=== PATIENT | female | born 1960 | race Caucasian/White ===

== ENCOUNTER 2016-10-26 07:58 | Emergency (ER) | payer BC ==
[~2016-10-26] VITALS: Ht 160 cm; Wt 94.0 kg
[~2016-10-26 07:58] MED LIST: BENA20TA48 PO; BUPR-75 PO; COLE500G2 PO; DICL50TA11 PO; GABA100C PO; HYD25 PO; HYDR-3498 PO; MTF1000T PO; NAPR-688 PO; PENT400T2 PO; PRAV10TA43 PO; SITA50TA2 PO
[2016-10-26 08:01] VITALS: Ht 160 cm; Wt 94.0 kg
[2016-10-26] MEDS ORDERED: PRED20TA PO (08:40)
--- NOTE | 2016-10-26 08:49 | ERD ---
ER Documentation Chief Complaint Date/Time DATE: 10/26/16 TIME: 08:42 Chief Complaint rashes all over body started 3 days ago; itchiness 2 weeks ago HPI 55-year-old female complaining of itchiness on her skin for 2 weeks. She noticed rashes on her back and neck 3 days ago. She has seen a executive director a week ago, was given hydroxyzine and ranitidine, as well as steroid cream. Patient stated that they have not helped. She is being extremely itching. Denies fever or chills. Denies exposure to new foods or new cleaning products. Denies shortness of breath. Denies oral facial swelling. Patient has history of diabetes, hypertension, depression, anxiety. Patient is taking multiple medications. ROS All systems reviewed and are negative except as per history of present illness. Medications Home Meds Active Scripts Prednisone* (Prednisone*) 20 Mg Tab, 60 MG PO DAILY for 3 Days, TAB Prov:MICHELL ESTES DEGREASING SOLUTION RECLAIMER 10/26/16 Hydrocodone Bit-Acetaminophen* ([place]*) 5-325 Mg Tab, 1 TAB PO Q6 Y for PAIN, # 7 TAB Prov:ZOYA GAUTHIER I. DEGREASING SOLUTION RECLAIMER 09/29/15 Diclofenac Sodium* (Diclofenac Sodium*) 50 Mg Tablet.dr, 50 MG PO BID, #20 TAB Prov:ZOYA GAUTHIER I. DEGREASING SOLUTION RECLAIMER 09/29/15 Sitagliptin* (Januvia*) 50 Mg Tablet, 50 MG PO DAILY, #30 TAB Prov:SCOTT GARCIA PA-C 02/26/15 Hydrocodone Bit-Acetaminophen* ([place]*) 5-325 Mg Tab, 1 TAB PO Q6 Y for PAIN, # 14 TAB Prov:SCOTT GARCIA PA-C 02/26/15 Reported Medications Bupropion Hcl* (Wellbutrin XL*) 150 Mg Tab.sr.24h, 150 MG PO QAM, TAB.SA 02/17/14 Benazepril Hcl* (Benazepril Hcl*) 20 Mg Tablet, 20 MG PO DAILY, TAB 02/17/14 Hydrochlorothiazide* (Hydrochlorothiazide*) 25 Mg Tab, 25 MG PO DAILY, TAB 02/17/14 Naproxen* (Naproxen*) 500 Mg Tablet, 500 MG PO BID Y for PAIN, TAB 02/17/14 Sitagliptin* (Januvia*) 50 Mg Tablet, 50 MG PO DAILY, TAB 02/17/14 Gabapentin* (Neurontin*) 100 Mg Capsule, 300 MG PO HS, CAP 02/17/14 Colestipol Hcl (Colestipol Hcl) 500 Gm Granules, 1 GM PO TID 02/17/14 Pentoxifylline* (Pentoxifylline*) 400 Mg Tablet.sa, 400 MG PO TID, TAB 02/17/14 Metformin* (Glucophage*) 1,000 Mg Tablet, 1000 MG PO BID, TAB 02/17/14 Pravastatin Sodium* (Pravastatin Sodium*) 10 Mg Tablet, 10 MG PO HS 10/26/12 Allergies Allergies: Coded Allergies: No Known Allergy (Unverified , 10/26/16) PMhx/Soc History of Surgery: No Anesthesia Reaction: No Hx Neurological Disorder: No Hx Respiratory Disorders: No Hx Cardiac Disorders: Yes (HTN, INCREASED CHOLESTEROL) Hx Psychiatric Problems: No Hx Miscellaneous Medical Probl: Yes (DIABETES ) Hx Alcohol Use: No Hx Substance Use: No Hx Tobacco Use: No Smoking Status: Never smoker Physical Exam Vitals Vital Signs Date Time Temp Pulse Resp B/P Pulse Ox O2 Delivery O2 Flow Rate FiO2 10/26/16 08:01 98.1 68 19 162/72 96 Physical Exam General: Well-developed, well-nourished, conscious and coherent, in no distress Skin: Warm and dry, good texture and turgor. Discrete urticaria noted on patient's back and posterior neck. Head: Normocephalic without evidence of trauma Eyes: Sclera and conjunctivae normal; pupils equal, round, and reactive to light; extraocular movements are intact Ears: Canals are patent. Tympanic membranes are clear Nose/Face: Without rhinorrhea Mouth/throat: Mucous membranes are moist. Posterior pharynx clear without erythema or exudates Neck: Supple without meningismus or adenopathy. Carotids are equal. Trachea midline. No bruits or JVD Chest: Normal AP diameter. Good expansion without retractions. Nontender. Lungs are clear to auscultate bilaterally with good tidal volume Heart: Regular rate and rhythm. No murmur, rub, or gallops heard Abdomen: Soft and nontender without masses, guarding, or rebound. Bowel sounds are active. No hepatosplenomegaly Back: Without spinal or CVA tenderness Extremities: Full range of motion. Good strength bilaterally. No clubbing, cyanosis, or edema. Peripheral pulses are intact. Sensation intact Neuro: Alert and oriented 4, GCS 15. Cranial nerves grossly intact. Motor and sensory exams nonfocal. Moves all extremities. Speech clear. Gait normal Procedures/MDM Well-appearing 55-year-old female presented ED with pruritic skin lesions. Her lesions characteristics of allergic urticaria. It is unknown the cause of her allergy at this time. No sign of anaphylaxis. No sign of Saldivar-Chau syndrome or toxic epidermal necrolysis. Advised patient to continue taking hydroxyzine and ranitidine. I will add a short course of steroid for her. Patient appears well, stable for discharge and outpatient management. Medical decision making shared with patient and family. Education provided to patient and family. Patient and family expressed understanding of the plan. Medications on discharge: Prednisone. Follow-up: Primary care provider in 2-3 days or return to ED if worse. Departure Diagnosis: Primary Impression: Rash Condition: Good Patient Instructions: Allergic Reaction, Other (General) Referrals: DIVYA ROGERS MD (PCP) Additional Instructions: Llame al doctor MAANA y tona tiffany MORGAN PARA DENTRO DE 2-3 CUMMINGS.Dgale a la secretaria que nosotros le instruimos hacer esta morgan.Avise o llame si sauceda condicin se empeora antes de la morgan. Regresa aqui si peor o no mejor. Follow up with your executive director. MICHELL ESTES NP Oct 26, 2016 08:49
== END 2016-10-26 08:51 | disposition home or self-care (01) ==
LOC: FTE 07:58
DX: R21 Rash and other nonspecific skin eruption (principal); I10 Essential (primary) hypertension; E11.9 Type 2 diabetes mellitus without complications; Z79.84 Long term (current) use of oral hypoglycemic drugs
CPT/HCPCS: 99283

== ENCOUNTER 2017-06-12 09:20 | Day surgery (SDC) | END 2017-06-12 13:09 | disposition home or self-care (01) ==

== ENCOUNTER 2018-09-18 06:48 | Emergency (ER) | payer BC, OTHER ==
[~2018-09-18] VITALS: Ht 154.9 cm; Wt 95.0 kg
[~2018-09-18 06:48] MED LIST changes: +BENA20TA4 PO; -BENA20TA48 PO; -COLE500G2 PO; -DICL50TA11 PO; -GABA100C PO; -HYD25 PO; -HYDR-3498 PO; +HYDR25TA6 PO; +LORA10TA3 PO; -MTF1000T PO; -NAPR-688 PO; -PENT400T2 PO; +PENT400T9 PO; +RANI150C11 PO
[2018-09-18 06:53] VITALS: Ht 154.9 cm; Wt 95.0 kg
[2018-09-18] MEDS ORDERED: ASPIRIN 325 MG TAB PO STA (07:16)
[2018-09-18] MEDS ORDERED: SOD CHLORIDE 0.9% 1,000 ML IV STA (07:30)
[2018-09-18] MEDS ORDERED: ONDANSETRON 4 MG INJ IV STA (07:30)
[2018-09-18] MEDS ORDERED: KETOROLAC 30 MG INJ IV STA (07:30)
[2018-09-18] MEDS ORDERED: ACETAMINOPHEN 500 MG TAB PO STA (07:47)
--- NOTE | 2018-09-18 07:54 | ERD ---
ER Documentation Chief Complaint Chief Complaint pressure like chest pain radiates to left arm, nausea and headache sicne 1 HPI This is a 57-year-old [place]-speaking female with a past medical history of [id number]-napipypms diabetes mellitus, peptic ulcer disease, hypertension and high cholesterol. The patient presents to the emergency department stating that she awoke at 1 AM, roughly 7 hours prior to arrival planing of a nonproductive cough nausea and pleuritic chest pain. She indicates that the pain is a sharp shooting pain and contrary to the triage note is not a pressure-like sensation. She stated it radiated to her left arm. The pain was exacerbated when she moved her left arm. She is right-handed dominant. The pain does not radiate to the back. She also has a bandlike headache. She has a history of sinusitis in the past and states her symptoms appear similar as she has had nasal congestion and tactile fever with no shaking and chills for the past 24 hours. She states this is not the worst headache of her life. She had no recent sick contacts or hos pitalizations. She denies any shortness of breath at rest or exertion. She does not smoke tobacco. She did not take any antipyretics prior to arrival. ROS All systems reviewed and are negative except as per history of present illness. Medications Home Meds Active Scripts Sitagliptin* (Januvia*) 50 Mg Tablet, 50 MG PO DAILY, #30 TAB Prov:SCOTT GARCIA PA-C 02/26/15 Reported Medications Ranitidine Hcl (Ranitidine Hcl) 150 Mg Capsule, 150 MG PO HS, #30 CAP 06/12/17 Loratadine* (Loratadine*) 10 Mg Tablet, 10 MG PO DAILY, #30 TAB 06/12/17 Bupropion Hcl* (Wellbutrin XL*) 150 Mg Tab.sr.24h, 150 MG PO QAM, TAB.SA 02/17/14 Benazepril Hcl* (Benazepril Hcl*) 20 Mg Tablet, 20 MG PO DAILY, TAB 02/17/14 Hydrochlorothiazide* (Hydrochlorothiazide*) 25 Mg Tab, 25 MG PO DAILY, TAB 02/17/14 Pentoxifylline* (Pentoxifylline*) 400 Mg Tablet.sa, 400 MG PO TID, TAB 02/17/14 Pravastatin Sodium* (Pravastatin Sodium*) 10 Mg Tablet, 10 MG PO HS 10/26/12 Allergies Allergies: Coded Allergies: No Known Allergy (Unverified , 10/26/16) PMhx/Soc History of Surgery: Yes (hysterectomy) Anesthesia Reaction: No Hx Neurological Disorder: No Hx Respiratory Disorders: No Hx Cardiac Disorders: Yes (htn,) Hx Psychiatric Problems: Yes (depression) Hx Miscellaneous Medical Probl: No Hx Alcohol Use: No Hx Substance Use: No Hx Tobacco Use: No Physical Exam Vitals Vital Signs Date Temp Pulse Resp B/P (MAP) Pulse Ox O2 O2 Flow FiO2 Time Delivery Rate 09/18/18 Nasal 2 07:36 Cannula 09/18/18 100.4 103 25 142/72 97 06:53 (95) Physical Exam Constitutional:Well-developed. Well-nourished. HEENT:Normocephalic. Atraumatic.Pupils were equal round reactive to light. Moist mucous membranes.No tonsillar exudates. Bogginess to the nasal mucosa. Transparent rhinorrhea. Tenderness of the frontal maxillary sinuses. Neck: No nuchal rigidity. No lymphadenopathy. No posterior cervical spine tenderness or step-offs. Respiratory: Not using accessory muscles of respiration.Lungs were clear to auscultation bilaterally. No rhonchi. No rales. Mild wheezing bilaterally. Cardiovascular: Regular rate regular rhythm.No murmurs. No rubs were appreciated.S1, S2 normal. Distal pulses are palpable 2+ bilaterally. Reproducible left substernal chest wall tenderness with no crepitus no ecchymosis no flail chest. Tenderness exacerbated with horizontal movement of the left upper extremity. GI: Abdomen was soft. Nontender. Non Distended. No pulsatile abdominal masses or bruits. No rebound. No guarding. Bowel sounds were present and normal. Muscle skeletal: Full range of motion of both the upper and lower extremities bilaterally.Normal muscle tone.No assymetrical calf tenderness or swelling. Skin: No petechia, no purpura. No lesions on the palms or the soles of the feet. No maculopapular rash. NEURO: Patient was alert, awake, orientated x3.No facial droop. Gait observed and normal with no ataxia.Speech had regular rate and rhythm. No focal neurological deficits. Results 24 hrs Laboratory Tests Test 09/18/18 07:33 White Blood Count Pending Red Blood Count Pending Hemoglobin Pending Hematocrit Pending Mean Corpuscular Volume Pending Mean Corpuscular Hemoglobin Pending Mean Corpuscular Hemoglobin Concent Pending Red Cell Distribution Width Pending Platelet Count Pending Mean Platelet Volume Pending Current Medications Medications Dose Sig/Dianna Start Time Status Last (Trade) Ordered Route PRN Stop Time Admin Dose Reason Admin Aspirin 325 mg ONCE STAT 09/18/18 DC 09/18/18 (Aspirin) PO 07:16 09/18/18 07:27 07:17 Sodium 1,000 ml @ Q1H STAT 09/18/18 Chloride 1,000 mls/hr IV 07:30 09/18/18 08:29 Ondansetron 4 mg ONCE STAT 09/18/18 DC HCl (Zofran IV 07:30 09/18/18 Inj) 07:32 Ketorolac 30 mg ONCE STAT 09/18/18 DC Tromethamine IV 07:30 09/18/18 (Toradol) 07:32 Procedures/MDM The patient presented to the emergency department complaining of chest pain. My clinical evaluation and workup was to distinguish minor causes of chest pain from acute life threatening cardiopulmonary causes such as myocardial infarction, pulmonary embolism, aortic dissection, esophageal rupture, cardiac tamponade, and the patient was given aspirin upon arrival The patient was placed on a cardiac exercise specialist, continuous pulse oximetry and IV access established by nursing staff. The patient had a low-grade fever signs of clinical dehydration was given a liter bolus of normal saline. Patient was given acetaminophen. The patient was also given IV Toradol. Chest radiograph showed no infiltrates no pneumothorax or pleural effusions. 12 Lead EKG tracing ordered and reviewed by myself showed: Sinus tachycardia of 102 bpm and no arrhythmia. ME interval normal. QRS duration normal. No ST segment elevation No ST segment depression. No changes consistent with acute ischemia. Patient no severe electrolyte abnormalities. There is no elevation of the patient's cardiac enzymes. The patients chest pain was reproduced by palpation and horizontal flexion of the arms. It was my clinical impression that the pain was a result of inflammation of the skin and subcutaneous structures of the chest wall versus myocardial ischemia. I felt the patient had low-risk chest pain and could therefore be safely discharged with close follow-up. I will discharge the patient home with antibiotics and anti-inflammatories for suspected acute sinusitis and acute occult chondritis. Steroids will not be given as the patient has a history of diabetes and this could result in hyperglycemia. The patient was discharged home in fair condition. They were instructed to return to the emergency department at any time if there was any worsening of their condition. The patient stated they would follow up with their PCP in the next 24-48 hours to initiate a suitable medication regimen under the care of their PCP as well as to allow their PCP to monitor any drug reactions. The patient was discharged home with prescriptions after they gave informed consent to the new medication. They were also fully informed by myself on the adverse effects and adverse drug interactions in order to provide adequate safeguards to prevent possible adverse reactions to medications. Departure Diagnosis: Primary Impression: Costochondritis, acute Additional Impression: Sinusitis Sinusitis location: frontal Chronicity: acute Recurrence: non-recurrent Qualified Codes: J01.10 - Acute frontal sinusitis, unspecified Condition: CHELSEY Downs MD September 18, 2018 07:54
[2018-09-18] MEDS ORDERED: AMOX500C2 PO (08:01)
[2018-09-18] MEDS ORDERED: IBUP800T48 PO (08:01)
[2018-09-18] MEDS ORDERED: ACET500C5 PO (08:01)
[2018-09-18] MEDS ORDERED: IPRATROPIUM (NEB) 0.5 MG/2.5 ML AMP NEB STA (08:22)
[2018-09-18] MEDS ORDERED: ALBUTEROL 0.083% (NEB) 2.5 MG/3 ML AMP NEB STA (08:22)
[2018-09-18 09:32] VITALS: BP 123/63; PULSE 74; RESP 20
== END 2018-09-18 09:34 | disposition home or self-care (01) ==
LOC: FTE 06:48
DX: M94.0 Chondrocostal junction syndrome [Tietze] (principal); J01.10 Acute frontal sinusitis, unspecified; E11.9 Type 2 diabetes mellitus without complications; I10 Essential (primary) hypertension; R05 Cough; Z79.84 Long term (current) use of oral hypoglycemic drugs
CPT/HCPCS: 36415; 71045; 80053; 82550; 82553; 83880; 84484; 85025; 85610; 85730; 93005; 94664; 96374; 96375; J1885; J2405; J7030; Z7502; Z7610

== ENCOUNTER 2018-10-11 07:48 | Emergency (ER) | payer OTHER ==
[~2018-10-11] VITALS: Ht 160 cm; Wt 95.0 kg
[~2018-10-11 07:48] MED LIST changes: +ACET500C5 PO; +AMOX500C2 PO; +IBUP800T48 PO
[2018-10-11 07:51] VITALS: Ht 160 cm; Wt 95.0 kg
[2018-10-11] MEDS ORDERED: morphine 4 MG/ML VIAL IV STA (08:06)
[2018-10-11] MEDS ORDERED: SOD CHLORIDE 0.9% 500 ML IV STA (08:06)
[2018-10-11] MEDS ORDERED: ONDANSETRON 4 MG INJ IV STA ×2 (08:06→09:53)
[2018-10-11] MEDS ORDERED: HYDROmorphONE 1 MG/ML SYG IV STA (09:53)
--- NOTE | 2018-10-11 10:22 | ERD ---
ER Documentation Chief Complaint Chief Complaint pain@ the back of the neck;headace, body pain,rashes on the feet ; hx of DM HPI This is a 57-year-old female that presents to the emergency department with multiple complaints. She indicates that she is been having a bandlike headache for several weeks. She been seen and evaluated for this headache in another facility. She had been diagnosed with migraines and had been given Motrin. Indicates that this improves the headache but does not completely resolve it. She does complain of pain to the back of her neck. However she said no fevers no shaking no chills. She indicates that this pain is been also present for several months. She does undergo heavy lifting. Her main concern today is that she has a history of diabetes mellitus and developed a rash on the bilateral l ower extremities that began 1 week ago. She was seen by her primary care physician and placed on antifungal medication. She indicates that the rash is pruritic, tender and she feels has worsened. It is localized to the bilateral lower extremities. She has no shortness of breath. She denies any chest pressure. She has no changes in vision. She states this is not the worst headache of her life. ROS All systems reviewed and are negative except as per history of present illness. Medications Home Meds Active Scripts Acetaminophen* (Tylophen*) 500 Mg Capsule, 2 CAP PO Q8H PRN for PAIN AND OR ELEVATED TEMP, #20 CAP Prov:CHELSEY SANTOS MD 09/18/18 Ibuprofen* (Motrin*) 800 Mg Tab, 800 MG PO Q6H PRN for PAIN AND OR ELEVATED TEMP, #30 TAB Prov:CHELSEY SANTOS MD 09/18/18 Amoxicillin* (Amoxicillin*) 500 Mg Cap, 500 MG PO BID for 7 Days, CAP Prov:CHELSEY SANTOS MD 09/18/18 Sitagliptin* (Januvia*) 50 Mg Tablet, 50 MG PO DAILY, #30 TAB Prov:SCOTT GARCIA PA-C 02/26/15 Reported Medications Ranitidine Hcl (Ranitidine Hcl) 150 Mg Capsule, 150 MG PO HS, #30 CAP 06/12/17 Loratadine* (Loratadine*) 10 Mg Tablet, 10 MG PO DAILY, #30 TAB 06/12/17 Bupropion Hcl* (Wellbutrin XL*) 150 Mg Tab.sr.24h, 150 MG PO QAM, TAB.SA 02/17/14 Benazepril Hcl* (Benazepril Hcl*) 20 Mg Tablet, 20 MG PO DAILY, TAB 02/17/14 Hydrochlorothiazide* (Hydrochlorothiazide*) 25 Mg Tab, 25 MG PO DAILY, TAB 02/17/14 Pentoxifylline* (Pentoxifylline*) 400 Mg Tablet.sa, 400 MG PO TID, TAB 02/17/14 Pravastatin Sodium* (Pravastatin Sodium*) 10 Mg Tablet, 10 MG PO HS 10/26/12 Allergies Allergies: Coded Allergies: No Known Allergy (Unverified , 10/26/16) PMhx/Soc History of Surgery: Yes (hysterectomy) Anesthesia Reaction: No Hx Neurological Disorder: No Hx Respiratory Disorders: No Hx Cardiac Disorders: Yes (htn, HIGH CHOLESTEROL, ) Hx Psychiatric Problems: Yes (depression) Hx Miscellaneous Medical Probl: Yes (DIABETES) Hx Alcohol Use: No Hx Substance Use: No Hx Tobacco Use: No Smoking Status: Never smoker Physical Exam Vitals Vital Signs Date Temp Pulse Resp B/P (MAP) Pulse Ox O2 O2 Flow FiO2 Time Delivery Rate 10/11/18 98.9 71 18 140/69 96 07:51 (92) Physical Exam Constitutional:Well-developed. Well-nourished. HEENT:Normocephalic. Atraumatic.Pupils were equal round reactive to light. Moist mucous membranes.No tonsillar exudates. Funduscopy exam showed sharp optic disks and venous pulsations are present. Neck: No nuchal rigidity. No lymphadenopathy. No posterior cervical spine tenderness or step-offs. Respiratory: Not using accessory muscles of respiration.Lungs were clear to auscultation bilaterally. No rhonchi. No rales. No wheezing. Cardiovascular: Regular rate regular rhythm.No murmurs. No rubs were appreciated.S1, S2 normal. Distal pulses are palpable 2+ bilaterally. GI: Abdomen was soft. Nontender. Non Distended. No pulsatile abdominal masses or bruits. No rebound. No guarding. Bowel sounds were present and normal. Muscle skeletal: Full range of motion of both the upper and lower extremities bilaterally.Normal muscle tone.bilateral calf tenderness with no asymmetrical swelling. Skin: No petechia, no purpura. No lesions on the palms or the soles of the feet. No maculopapular rash. Erythremia warmth and tenderness over the anterior aspect of the distal third of the bilateral lower extremities with multiple areas of excoriations. Pain not out of proportion to physical exam. No subcutaneous emphysema. NEURO: Patient was alert, awake, orientated x3.No facial droop. Gait observed and normal with no ataxia.Speech had regular rate and rhythm. No focal n eurological deficits. Result Diagram: 10/11/18 0845 10/11/18 0845 Results 24 hrs Laboratory Tests Test 10/11/18 08:45 White Blood Count 7.3 10^3/ul Red Blood Count 5.00 10^6/ul Hemoglobin 12.0 g/dl Hematocrit 38.3 % Mean Corpuscular Volume 76.6 fl Mean Corpuscular Hemoglobin 24.0 pg Mean Corpuscular Hemoglobin Concent 31.3 g/dl Red Cell Distribution Width 13.7 % Platelet Count 401 10^3/UL Mean Platelet Volume 8.9 fl Immature Granulocytes % 0.300 % Neutrophils % 63.1 % Lymphocytes % 27.7 % Monocytes % 4.6 % Eosinophils % 4.2 % Basophils % 0.1 % Nucleated Red Blood Cells % 0.0 /100WBC Immature Granulocytes # 0.020 10^3/ul Neutrophils # 4.6 10^3/ul Lymphocytes # 2.0 10^3/ul Monocytes # 0.3 10^3/ul Eosinophils # 0.3 10^3/ul Basophils # 0.0 10^3/ul Nucleated Red Blood Cells # 0.0 10^3/ul Prothrombin Time 13.6 Sec Prothrombin Time Ratio 1.1 INR International Normalized Ratio 1.03 Activated Partial Thromboplast Time 27.5 Sec Urine Color YELLOW Urine Clarity SLIGHTLY CLOUDY Urine pH 7.0 Urine Specific [place] 1.018 Urine Ketones NEGATIVE mg/dL Urine Nitrite NEGATIVE mg/dL Urine Bilirubin NEGATIVE mg/dL Urine Urobilinogen NEGATIVE mg/dL Urine Leukocyte Esterase TRACE Marley/ul Urine Microscopic RBC 10 /HPF Urine Microscopic WBC 37 /HPF Urine Squamous Epithelial Cells MODERATE /HPF Urine Bacteria FEW /HPF Urine Mucus FEW /HPF Urine Hemoglobin 1+ mg/dL Urine Glucose NEGATIVE mg/dL Urine Total Protein 1+ mg/dl Sodium Level 140 mmol/L Potassium Level 4.3 mmol/L Chloride Level 106 mmol/L Carbon Dioxide Level 26 mmol/L Anion Gap 8 Blood Urea Nitrogen 9 mg/dl Creatinine 0.48 mg/dl Est Glomerular Filtrat Rate mL/min > 60 mL/min Glucose Level 182 mg/dl Calcium Level 9.3 mg/dl Total Bilirubin 1.1 mg/dl Direct Bilirubin 0.00 mg/dl Indirect Bilirubin 1.1 mg/dl Aspartate Amino Transf (AST/SGOT) 36 IU/L Alanine Aminotransferase (ALT/SGPT) 40 IU/L Alkaline Phosphatase 89 IU/L Troponin I < 0.012 ng/ml Total Protein 8.2 g/dl Albumin 4.2 g/dl Globulin 4.00 g/dl Albumin/Globulin Ratio 1.05 Amylase Level 69 U/L Lipase 56 U/L Current Medications Medications Dose Sig/Dianna Start Time Status Last (Trade) Ordered Route PRN Stop Time Admin Dose Reason Admin Sodium 500 ml @ Q1H STAT 10/11/18 DC 10/11/18 Chloride 500 mls/hr IV 08:06 08:40 10/11/18 09:05 Morphine 4 mg ONCE STAT 10/11/18 DC 10/11/18 Sulfate IV 08:06 08:40 (morphine) 10/11/18 08:07 Ondansetron 4 mg ONCE STAT 10/11/18 DC 10/11/18 HCl (Zofran IV 08:06 08:40 Inj) 10/11/18 08:07 1 mg ONCE STAT 10/11/18 DC Hydromorphone IV 09:53 HCl 10/11/18 09:55 (Dilaudid) Ondansetron 4 mg ONCE STAT 10/11/18 DC HCl (Zofran IV 09:53 Inj) 10/11/18 09:55 Procedures/MDM The patient presented to the emergency department with a subacute headache that began within weeks to months of onset. My differential diagnosis included but was not limited to chronic subdural hematoma, brain tumor, brain abscess, chronic sinusitis, temporal arteritis, temporomandibular joint syndrome, ps uedotumor cerebri, glaucoma, migrane, HTN, intracranial hemorrhage or cerebral ischemia. This was not the patients worse headache of their life. The patient had a complete neurologic and fundoscopic exam performed by myself that was normal with no focal neurological deficits or retinal hemorrhage. The patient stated this headache was not severe or distinct from other headaches and the history with the physical exam findings did not likely suggest SAH. Therefore, I did not feel it was clinically necessary to perform a lumbar puncture and CSF analysis. I obtained a 12-lead EKG tracing patient was also complaining of dizziness. The patient started to have multiple complaints now also being dizziness. She had no focal neurological deficits. 12 Lead EKG tracing ordered and reviewed by myself showed: Normal sinus rhythm of 60 bpm and no arrhythmia. FL interval normal. QRS duration normal. No ST segment elevation No ST segment depression. No changes consistent with acute ischemia. I obtained a CT scan the patient's head which showed no intracerebral hemorrhage mass-effect or midline shift. Initially did not obtain radiographic imaging but the patient still continued to complain of a bandlike headache despite receiving analgesic medication which include morphine and Zofran. She also received Dilaudid. The patient was afebrile with no nuchal rigidity my clinical suspicion was low for bacterial meningitis. The patient's urinalysis did indicate pyuria with leukocytes and nitrates. The patient did states she had been experiencing frequency and urgency but denies dysuria. She was given 1 g of ceftriaxone intravenously after urine culture was obtained. The patient also presented to the emergency department with a spreading erythematous superficial infection of the skin and subcutaneous tissues. My differential diagnosis included but was not limited to necrotizing fasciitis, lymphangitis, thrombophlebitis, deep vein thrombosis, allergic reaction, neoplasm, gout or abscess. Predisposing factors of the progressive spread of erythema, warmth, pain and tenderness was considered such as lymphedema, tinea pedis, open wounds, prior trauma or surgery, pre-existing skin lesion (furuncle), retained foreign body, injection drug use or vascular or immune compromise. The patient was placed on antibiotics to cover Staphylococcus aureus, including resistant strains such as community-acquired methicillin- resistant S. aureus Observation Note: Time: 4 hours Family Hx: No Hypertension Evaluation: Multiple exams showed improving symptoms and no evidence of sepsis. There is no leukocytosis. I did feel the patient would benefit from outpatient antibiotics to treat both urinary tract infection and suspected cellulitis of the bilateral lower extremities. She was given a prescription of Bactrim and Keflex. The patient was discharged home in fair condition. They w ere instructed to return to the emergency department at any time if there was any worsening of their condition. The patient stated they would follow up with their PCP in the next 24-48 hours to initiate a suitable medication regimen under the care of their PCP as well as to allow their PCP to monitor any drug reactions. The patient was discharged home with prescriptions after they gave informed consent to the new medication. They were also fully informed by myself on the adverse effects and adverse drug interactions in order to provide adequate safeguards to prevent possible adverse reactions to medications. Departure Diagnosis: Primary Impression: Headache Headache type: tension-type Headache chronicity pattern: episodic headache Intractability: not intractable Qualified Codes: G44.219 - Episodic tension-type headache, not intractable Additional Impressions: UTI (urinary tract infection) Urinary tract infection type: acute cystitis Hematuria presence: without h ematuria Qualified Codes: N30.00 - Acute cystitis without hematuria Cellulitis Site of cellulitis: extremity Site of cellulitis of extremity: lower extremity Laterality: unspecified laterality Qualified Codes: L03.119 - Cellulitis of unspecified part of limb Condition: CHELSEY Downs MD October 11, 2018 10:22
[2018-10-11] MEDS ORDERED: CEFTRIAXONE 1 GM/50 ML (PMX) 50 ML IVPB ONE (10:30)
[2018-10-11] MEDS ORDERED: BEN25 PO (10:43)
[2018-10-11] MEDS ORDERED: SIMV20TA PO (10:44)
[2018-10-11] MEDS ORDERED: BENA10TA4 PO (10:44)
[2018-10-11] MEDS ORDERED: OMEP40CA6 PO (10:44)
[2018-10-11] MEDS ORDERED: DULA0.75 SQ (10:45)
[2018-10-11] MEDS ORDERED: SITA100T11 PO (10:45)
[2018-10-11] MEDS ORDERED: IBUP-1544 PO (10:46)
[2018-10-11] MEDS ORDERED: GLIP10TA14 PO (10:46)
[2018-10-11] MEDS ORDERED: MONT10TA24 PO (10:47)
[2018-10-11] MEDS ORDERED: GABA400C14 PO (10:47)
[2018-10-11] MEDS ORDERED: FURO20TA3 PO (10:48)
[2018-10-11] MEDS ORDERED: BUPR300T4 PO (10:48)
[2018-10-11] MEDS ORDERED: CEPH-443 PO (13:34)
[2018-10-11] MEDS ORDERED: SULF1TAB31 PO (13:34)
[2018-10-11 15:51] VITALS: BP 138/72; PULSE 71; RESP 18
== END 2018-10-11 15:54 | disposition home or self-care (01) ==
LOC: E/R 07:48
DX: G44.219 Episodic tension-type headache, not intractable (principal); N30.00 Acute cystitis without hematuria; L03.115 Cellulitis of right lower limb; L03.116 Cellulitis of left lower limb; E11.9 Type 2 diabetes mellitus without complications; R42 Dizziness and giddiness
CPT/HCPCS: 70450; 80053; 81001; 82150; 83690; 84484; 85025; 85610; 85730; 87086; 93005; 93970; J0696; J1170; J2270; J2405; J7040; Z7610; 36415; 96361; 96374; 96375; 96376

== ENCOUNTER 2019-03-07 12:29 | Inpatient (IN) | payer OTHER ==
[~2019-03-07] VITALS: Ht 157.5 cm; Wt 83.7 kg
[~2019-03-07 12:29] MED LIST changes: +ACET325T33 PO; -ACET500C5 PO; -AMOX500C2 PO; +BEN25 PO; +BENA10TA6 PO; -BENA20TA4 PO; -BUPR-75 PO; +BUPR300T4 PO; +CARAS PO; +CARSUSP ORAL; +CEPH-443 PO; +CHOL200056 PO; +DULA0.75 SQ; +FURO20TA3 ORAL; +FURO20TA3 PO; +GABA400C14 PO; +GLIP10TA14 PO; +GLIP5TAB13 ORAL; +GUAI120S25 PO; -HYDR25TA6 PO; +HYOS0.1297 PO; +IBUP-1544 PO; -IBUP800T48 PO; -LORA10TA3 PO; +LOSA50TA14 ORAL; +LOSA50TA14 PO; +MONT10TA24 PO; +OMEP40CA38 PO; +ONDA4TAB14 SUBLINGUAL; -PENT400T9 PO; +POTA8TAB2 PO; -PRAV10TA43 PO; -RANI150C11 PO; +SIMV20TA PO; +SITA100T11 PO; -SITA50TA2 PO; +SODI44SP19 NASAL; +SULF1TAB31 PO
[2019-03-07] MEDS ORDERED: NITROGLYCERIN (SL) 0.4 MG TAB SL PRN (19:30)
[2019-03-07] MEDS ORDERED: MAGNESIUM HYDROXIDE 30ML CUP PO PRN (19:30)
[2019-03-07] MEDS ORDERED: ALBUTEROL/IPRATROPIUM (NEB) 3 ML AMP HHN PRN (19:30)
[2019-03-07] MEDS ORDERED: morphine 2 MG INJ IV PRN (19:30)
[2019-03-07] MEDS ORDERED: NACL 0.9% 3 ML SYG IV SCH (19:30)
[2019-03-07] MEDS ORDERED: HYDROCODONE/APAP (5/325) TAB PO PRN (19:30)
[2019-03-07] MEDS ORDERED: ONDANSETRON 4 MG INJ IV PRN ×2 (19:30→20:00)
[2019-03-07] MEDS ORDERED: hydrALAzine 20 MG INJ IV PRN (19:30)
[2019-03-07] MEDS ORDERED: LORAZEPAM 2 MG INJ IV PRN (19:30)
[2019-03-07] MEDS ORDERED: ACETAMINOPHEN 325 MG TAB PO PRN ×2 (19:30→20:00)
[2019-03-07] MEDS ORDERED: NON-FORMULARY/PATIENT OWN MED (Simvastatin* (Zocor*) 20 MG) PO SCH (21:00)
[2019-03-07] MEDS: ATORVASTATIN 10 MG TAB PO SCH (21:00)
[2019-03-08] MEDS: SOD CHLORIDE 0.45% 1,000 ML IV SCH ×4 (01:00→18:38)
[2019-03-08 01:30] VITALS: Ht 157.5 cm; Wt 83.7 kg
[2019-03-08] MEDS ORDERED: PANTOPRAZOLE (EC) 40 MG TAB PO SCH (06:00)
[2019-03-08 07:50] VITALS: BP 130/62; PULSE 52; RESP 18
[2019-03-08] MEDS ORDERED: NON-FORMULARY/PATIENT OWN MED (Omeprazole* 40 MG) PO SCH (09:00)
[2019-03-08] MEDS: BUPROPION (XL) 150 MG TAB PO SCH (09:00)
[2019-03-08 14:22] VITALS: BP 138/65; PULSE 57; RESP 17
[2019-03-08] MEDS ORDERED: DEXTROSE 50% 50 ML SYRINGE IV PRN ×2 (15:00)
[2019-03-08] MEDS ORDERED: GLUCOSE GEL 15 GRAM TUBE PO PRN ×2 (15:00)
[2019-03-08] MEDS ORDERED: GLUCOSE GEL 15 GRAM TUBE BUCCAL PRN (15:00)
[2019-03-08] MEDS ORDERED: GLUCAGON 1 MG INJ IM PRN (15:00)
[2019-03-08] MEDS: LOSARTAN 50 MG TAB PO SCH (15:16)
[2019-03-08] MEDS ORDERED: TRIMETHOBENZAMIDE 300 MG CAP PO ONE (17:00)
[2019-03-08] MEDS ORDERED: BARIUM SULF 2% 450 ML BTL (BERRY SMOOTHIE) PO ONE ×2 (17:00→18:30)
[2019-03-08] MEDS: INSULIN ASPART [NOVOLOG] 3 ML PEN SC SCH ×2 (17:41→21:00)
[2019-03-08] MEDS: SUCRALFATE (100 MG/ML) 10ML CUP PO SCH ×2 (17:41→21:30)
[2019-03-08] MEDS: PANTOPRAZOLE 40 MG INJ IV SCH (17:42)
[2019-03-08 20:48] VITALS: BP 127/61; PULSE 62; RESP 18
[2019-03-08] MEDS ORDERED: ATORVASTATIN 10 MG TAB PO SCH (21:00)
[2019-03-08] MEDS: ATORVASTATIN 10 MG TAB PO SCH (21:30)
[2019-03-08] MEDS: HYOSCYAMINE 0.125 MG SUBL TAB PO SCH (21:31)
[2019-03-09 02:16] VITALS: BP 141/62; PULSE 57; RESP 18
[2019-03-09] MEDS: HYOSCYAMINE 0.125 MG SUBL TAB PO SCH ×3 (05:15→21:07)
[2019-03-09] MEDS: PANTOPRAZOLE 40 MG INJ IV SCH ×2 (05:16→17:17)
[2019-03-09 07:27] VITALS: BP 118/71; PULSE 55; RESP 17
[2019-03-09] MEDS: INSULIN ASPART [NOVOLOG] 3 ML PEN SC SCH ×4 (08:00→20:19)
[2019-03-09] MEDS: SUCRALFATE (100 MG/ML) 10ML CUP PO SCH ×4 (08:19→21:07)
[2019-03-09] MEDS: BUPROPION (XL) 150 MG TAB PO SCH (08:19)
[2019-03-09] MEDS: LOSARTAN 50 MG TAB PO SCH (08:20)
[2019-03-09] MEDS: SOD CHLORIDE 0.45% 1,000 ML IV SCH (12:46)
[2019-03-09 15:00] VITALS: BP 109/75; PULSE 62; RESP 20
[2019-03-09] MEDS: CEFTRIAXONE 1 GM/50 ML (PMX) 50 ML IVPB SCH (17:15)
[2019-03-09 19:48] VITALS: BP 110/63; PULSE 61; RESP 18
[2019-03-09] MEDS: ATORVASTATIN 10 MG TAB PO SCH (21:07)
[2019-03-10 02:44] VITALS: BP 131/64; PULSE 53; RESP 17
[2019-03-10] MEDS: SOD CHLORIDE 0.45% 1,000 ML IV SCH ×2 (03:12→16:24)
[2019-03-10] MEDS: HYOSCYAMINE 0.125 MG SUBL TAB PO SCH ×3 (05:16→21:23)
[2019-03-10] MEDS: PANTOPRAZOLE 40 MG INJ IV SCH ×2 (05:16→17:30)
[2019-03-10 07:38] VITALS: BP 136/68; PULSE 58; RESP 18
[2019-03-10] MEDS: INSULIN ASPART [NOVOLOG] 3 ML PEN SC SCH ×4 (08:00→21:00)
[2019-03-10] MEDS: SUCRALFATE (100 MG/ML) 10ML CUP PO SCH ×4 (08:37→21:23)
[2019-03-10] MEDS: BUPROPION (XL) 150 MG TAB PO SCH (08:37)
[2019-03-10] MEDS: LOSARTAN 50 MG TAB PO SCH (08:38)
[2019-03-10 14:27] VITALS: BP 124/66; PULSE 60; RESP 16
[2019-03-10] MEDS: CEFTRIAXONE 1 GM/50 ML (PMX) 50 ML IVPB SCH (16:22)
[2019-03-10 20:27] VITALS: BP 139/70; PULSE 60; RESP 18
[2019-03-10] MEDS: ATORVASTATIN 10 MG TAB PO SCH (21:23)
[2019-03-11] VITALS (15 sets, daily range): BP systolic 114–159; BP diastolic 56–83; PULSE 53–64; RESP 16–22
[2019-03-11] MEDS: HYOSCYAMINE 0.125 MG SUBL TAB PO SCH ×3 (06:00→21:47)
[2019-03-11] MEDS: PANTOPRAZOLE 40 MG INJ IV SCH (06:02)
[2019-03-11] MEDS: LOSARTAN 50 MG TAB PO SCH (09:00)
[2019-03-11] MEDS: BUPROPION (XL) 150 MG TAB PO SCH (09:00)
[2019-03-11] MEDS: SUCRALFATE (100 MG/ML) 10ML CUP PO SCH ×4 (09:00→21:47)
[2019-03-11] MEDS: INSULIN ASPART [NOVOLOG] 3 ML PEN SC SCH ×4 (09:48→21:00)
[2019-03-11] MEDS ORDERED: LIDOCAINE 1% (MPF) 5 ML VIAL ONE (11:36)
[2019-03-11] MEDS ORDERED: FENTAnyl 50 MCG/ML VIAL ONE ×2 (11:36→14:53)
[2019-03-11] MEDS ORDERED: MIDAZOLAM 1 MG/ML 2 ML INJ ONE (11:37)
[2019-03-11] MEDS: LINEZOLID 600 MG/300 ML (PMX) 300 ML IVPB SCH ×2 (13:01→21:48)
[2019-03-11] MEDS ORDERED: PROPOFOL 40 ML ONE (14:52)
[2019-03-11] MEDS ORDERED: LIDOCAINE 2% (SDV) 5 ML INJ ONE (14:52)
[2019-03-11] MEDS: PIPER-TAZO 2.25 GM (PMX) 50 ML IVPB SCH ×2 (16:28→23:04)
[2019-03-11] MEDS: PANTOPRAZOLE (EC) 40 MG TAB PO SCH (18:10)
[2019-03-11] MEDS: ATORVASTATIN 10 MG TAB PO SCH (21:47)
[2019-03-12 03:24] VITALS: BP 91/54; PULSE 93; RESP 18
[2019-03-12 03:25] VITALS: BP 128/60; PULSE 62; RESP 18
[2019-03-12] MEDS: HYOSCYAMINE 0.125 MG SUBL TAB PO SCH ×3 (05:32→21:42)
[2019-03-12] MEDS: PIPER-TAZO 2.25 GM (PMX) 50 ML IVPB SCH ×2 (05:32→14:26)
[2019-03-12] MEDS: PANTOPRAZOLE (EC) 40 MG TAB PO SCH ×2 (05:32→17:55)
[2019-03-12] MEDS: INSULIN ASPART [NOVOLOG] 3 ML PEN SC SCH ×4 (08:00→20:36)
[2019-03-12 08:07] VITALS: BP 130/67; PULSE 52; RESP 16
[2019-03-12] MEDS: SUCRALFATE (100 MG/ML) 10ML CUP PO SCH ×4 (09:13→20:31)
[2019-03-12] MEDS: BUPROPION (XL) 150 MG TAB PO SCH (09:14)
[2019-03-12] MEDS: LOSARTAN 50 MG TAB PO SCH (09:14)
[2019-03-12] MEDS: LINEZOLID 600 MG/300 ML (PMX) 300 ML IVPB SCH (09:15)
[2019-03-12 14:48] VITALS: BP 105/57; PULSE 63; RESP 16
[2019-03-12 19:24] VITALS: BP 123/62; PULSE 58; RESP 16
[2019-03-12] MEDS: SOD FERRIC GLUC COMPLX 125 MG in SOD CHLORIDE 0.9% 100 ML IVPB SCH (20:31)
[2019-03-12] MEDS: ATORVASTATIN 10 MG TAB PO SCH (20:32)
[2019-03-12] MEDS: LEVOFLOXACIN 500MG/D5W (PMX) 100 ML IVPB SCH (21:41)
[2019-03-13 01:34] VITALS: BP 145/73; PULSE 63; RESP 16
[2019-03-13] MEDS: HYOSCYAMINE 0.125 MG SUBL TAB PO SCH ×3 (06:01→22:21)
[2019-03-13] MEDS: PANTOPRAZOLE (EC) 40 MG TAB PO SCH ×2 (06:01→18:12)
[2019-03-13 07:45] VITALS: BP 157/75; PULSE 58; RESP 18
[2019-03-13] MEDS: INSULIN ASPART [NOVOLOG] 3 ML PEN SC SCH ×4 (08:00→20:19)
[2019-03-13] MEDS: SUCRALFATE (100 MG/ML) 10ML CUP PO SCH ×4 (08:31→20:18)
[2019-03-13] MEDS: BUPROPION (XL) 150 MG TAB PO SCH (08:31)
[2019-03-13] MEDS: SOD CHLORIDE 0.9% 1,000 ML IV SCH (08:32)
[2019-03-13] MEDS: SOD FERRIC GLUC COMPLX 125 MG in SOD CHLORIDE 0.9% 100 ML IVPB SCH (13:07)
[2019-03-13] MEDS: DOCUSATE SODIUM 100 MG CAP PO PRN ×2 (13:07→20:18)
[2019-03-13] MEDS ORDERED: GUAIFENESIN/DM 5ML CUP PO PRN (14:00)
[2019-03-13 15:03] VITALS: BP 136/69; PULSE 53; RESP 18
[2019-03-13 20:12] VITALS: BP 168/79; PULSE 56; RESP 18
[2019-03-13] MEDS: ATORVASTATIN 10 MG TAB PO SCH (20:18)
[2019-03-13 22:05] VITALS: BP 112/61; PULSE 55
[2019-03-14 01:50] VITALS: BP 135/69; PULSE 56; RESP 16
[2019-03-14] MEDS: SOD CHLORIDE 0.9% 1,000 ML IV SCH ×3 (03:30→23:30)
[2019-03-14] MEDS: HYOSCYAMINE 0.125 MG SUBL TAB PO SCH ×3 (05:43→21:06)
[2019-03-14] MEDS: PANTOPRAZOLE (EC) 40 MG TAB PO SCH ×2 (05:43→17:30)
[2019-03-14 07:37] VITALS: BP 155/81; PULSE 52; RESP 18
[2019-03-14] MEDS: INSULIN ASPART [NOVOLOG] 3 ML PEN SC SCH ×4 (08:00→20:04)
[2019-03-14] MEDS: BUPROPION (XL) 150 MG TAB PO SCH (08:07)
[2019-03-14] MEDS: SUCRALFATE (100 MG/ML) 10ML CUP PO SCH ×4 (08:07→20:02)
[2019-03-14] MEDS: DOCUSATE SODIUM 100 MG CAP PO PRN (09:24)
[2019-03-14] MEDS: SOD FERRIC GLUC COMPLX 125 MG in SOD CHLORIDE 0.9% 100 ML IVPB SCH (12:58)
[2019-03-14 14:33] VITALS: BP 129/76; PULSE 56; RESP 18
[2019-03-14 19:36] VITALS: BP 154/78; PULSE 56; RESP 16
[2019-03-14] MEDS: ATORVASTATIN 10 MG TAB PO SCH (20:02)
[2019-03-14] MEDS: LEVOFLOXACIN 500MG/D5W (PMX) 100 ML IVPB SCH (20:04)
[2019-03-15 02:25] VITALS: BP 125/71; PULSE 58; RESP 18
[2019-03-15] MEDS: SOD CHLORIDE 0.9% 1,000 ML IV SCH (04:17)
[2019-03-15] MEDS: HYOSCYAMINE 0.125 MG SUBL TAB PO SCH ×3 (06:06→21:36)
[2019-03-15] MEDS: PANTOPRAZOLE (EC) 40 MG TAB PO SCH ×2 (06:06→18:24)
[2019-03-15] MEDS: DOCUSATE SODIUM 100 MG CAP PO PRN ×2 (06:08→18:47)
[2019-03-15 07:21] VITALS: BP 149/75; PULSE 54; RESP 20
[2019-03-15] MEDS: INSULIN ASPART [NOVOLOG] 3 ML PEN SC SCH ×4 (08:00→20:40)
[2019-03-15] MEDS: BUPROPION (XL) 150 MG TAB PO SCH (08:27)
[2019-03-15] MEDS: SUCRALFATE (100 MG/ML) 10ML CUP PO SCH ×4 (08:27→20:40)
[2019-03-15] MEDS ORDERED: SALINE 0.65% 45 ML NAS SPRAY NASAL PRN (11:00)
[2019-03-15] MEDS ORDERED: LIDOCAINE 1% (MPF) 5 ML VIAL ONE ×2 (12:50)
[2019-03-15] MEDS ORDERED: FENTAnyl 50 MCG/ML VIAL ONE (13:12)
[2019-03-15] MEDS ORDERED: GELATIN POWDER 1 GM KIT TOP ONE (14:00)
[2019-03-15] MEDS ORDERED: GELATIN 12MM X 7 MM SPONGE TOP ONE (14:00)
[2019-03-15 15:00] VITALS: BP 144/71; PULSE 63; RESP 16
[2019-03-15] MEDS: SOD FERRIC GLUC COMPLX 125 MG in SOD CHLORIDE 0.9% 100 ML IVPB SCH (15:16)
[2019-03-15 19:39] VITALS: BP 129/81; PULSE 57; RESP 18
[2019-03-15] MEDS: ATORVASTATIN 10 MG TAB PO SCH (20:40)
[2019-03-16 02:08] VITALS: BP 124/69; PULSE 61; RESP 16
[2019-03-16] MEDS: HYOSCYAMINE 0.125 MG SUBL TAB PO SCH ×3 (06:26→21:37)
[2019-03-16] MEDS: PANTOPRAZOLE (EC) 40 MG TAB PO SCH ×2 (06:30→17:26)
[2019-03-16 07:38] VITALS: BP 125/62; PULSE 60; RESP 18
[2019-03-16] MEDS: INSULIN ASPART [NOVOLOG] 3 ML PEN SC SCH ×4 (08:00→20:42)
[2019-03-16] MEDS: SUCRALFATE (100 MG/ML) 10ML CUP PO SCH ×4 (10:41→20:42)
[2019-03-16] MEDS: BUPROPION (XL) 150 MG TAB PO SCH (10:42)
[2019-03-16] MEDS: SOD FERRIC GLUC COMPLX 125 MG in SOD CHLORIDE 0.9% 100 ML IVPB SCH (13:28)
[2019-03-16 13:33] VITALS: BP 135/77; PULSE 60; RESP 18
[2019-03-16 19:58] VITALS: BP 123/74; PULSE 63; RESP 18
[2019-03-16] MEDS: ATORVASTATIN 10 MG TAB PO SCH (20:42)
[2019-03-17 01:05] VITALS: BP 122/77; PULSE 60; RESP 20
[2019-03-17] MEDS: HYOSCYAMINE 0.125 MG SUBL TAB PO SCH ×2 (06:09→13:22)
[2019-03-17] MEDS: PANTOPRAZOLE (EC) 40 MG TAB PO SCH ×2 (06:09→17:31)
[2019-03-17 07:46] VITALS: BP 119/62; PULSE 60; RESP 16
[2019-03-17] MEDS: INSULIN ASPART [NOVOLOG] 3 ML PEN SC SCH ×3 (08:00→17:28)
[2019-03-17] MEDS: BUPROPION (XL) 150 MG TAB PO SCH (08:10)
[2019-03-17] MEDS: SUCRALFATE (100 MG/ML) 10ML CUP PO SCH ×3 (08:10→17:32)
[2019-03-17 14:41] VITALS: BP 108/58; PULSE 60; RESP 16
[2019-03-17] MEDS ORDERED: PNEUMOCOCCAL VACCINE 0.5 ML INJ IM* ONE (16:30)
[2019-03-17] MEDS ORDERED: FLU VACC QS 2019-20 (6MOS UP) 0.5 ML SYG IM* ONE (16:30)
== END 2019-03-17 17:45 | disposition home or self-care (01) | DRG 377 ==
LOC: E/R 12:29 → 2NE 19:35 → EDBEDREQ 21:38 → EDBEDREQTM 21:38
PROVIDERS: ADMIT Internal Medicine; ATTEND Internal Medicine
PROC: 30233N1 Transfusion of Nonautologous Red Blood Cells into Peripheral Vein, Percutaneous Approach (ICD-10-PCS; 2019-03-07)
PROC: 0DB68ZX Excision of Stomach, Via Natural or Artificial Opening Endoscopic, Diagnostic (ICD-10-PCS; 2019-03-11)
PROC: 07DR3ZX Extraction of Iliac Bone Marrow, Percutaneous Approach, Diagnostic (ICD-10-PCS; 2019-03-11)
PROC: 0DB58ZX Excision of Esophagus, Via Natural or Artificial Opening Endoscopic, Diagnostic (ICD-10-PCS; principal; 2019-03-11 15:00)
PROC: 3E02340 Introduction of Influenza Vaccine into Muscle, Percutaneous Approach (ICD-10-PCS; 2019-03-17)
PROC: 3E0234Z Introduction of Serum, Toxoid and Vaccine into Muscle, Percutaneous Approach (ICD-10-PCS; 2019-03-17)
DX: K92.2 Gastrointestinal hemorrhage, unspecified (principal); J18.9 Pneumonia, unspecified organism; N17.9 Acute kidney failure, unspecified; D62 Acute posthemorrhagic anemia; N39.0 Urinary tract infection, site not specified; D47.2 Monoclonal gammopathy; E78.5 Hyperlipidemia, unspecified; E11.40 Type 2 diabetes mellitus with diabetic neuropathy, unspecified; I12.9 Hypertensive chronic kidney disease with stage 1 through stage 4 chronic kidney disease, or unspecified chronic kidney disease; N18.9 Chronic kidney disease, unspecified; E11.22 Type 2 diabetes mellitus with diabetic chronic kidney disease; Z79.4 Long term (current) use of insulin; D63.1 Anemia in chronic kidney disease; Z23 Encounter for immunization; E66.9 Obesity, unspecified; E88.81 Metabolic syndrome and other insulin resistance; Z68.33 Body mass index [BMI] 33.0-33.9, adult; F32.9 Major depressive disorder, single episode, unspecified; E03.9 Hypothyroidism, unspecified; K64.9 Unspecified hemorrhoids; E55.9 Vitamin D deficiency, unspecified; J44.9 Chronic obstructive pulmonary disease, unspecified
CPT/HCPCS: 36430; 71045; 71250; 74176; 76775; 77012; 77075; 80048; 80053; 80061; 81001; 81003; 82043; 82270; 82306; 82378; 82570; 82607; 82668; 82728; 82746; 82784; 82785; 82962; 83010; 83036; 83540; 83615; 83735; 84100; 84155; 84156; 84165; 84166; 84300; 84439; 84443; 84484; 85025; 85045; 85576; 85610; 85651; 85730; 86300; 86304; 86320; 86325; 86480; 86635; 86850; 86900; 86901; 86920; 87086; 88305; 88311; 88312; 88313; 90686; 90732; 93005; 97161; C9113; J0696; J1815; J1956; J2250; J2405; J2543; J2916; J3010; J7030; P9016